=== PATIENT | female | born 1995 | race Caucasian/White ===

== ENCOUNTER 2017-06-05 23:20 | Emergency (ER) | payer SELFPAY ==
[~2017-06-05] VITALS: Ht 160 cm; Wt 61.4 kg
[2017-06-05 23:26] VITALS: BP 129/87; TEMP 98.6
[2017-06-05] MEDS ORDERED: YAZ 28 3 MG-0.01 TAB PO (23:30)
[2017-06-06 01:43] VITALS: PULSE 72
== END 2017-06-06 01:43 | disposition home or self-care (01) ==
LOC: COL.ER 23:20
DX: S61.411A Laceration without foreign body of right hand, initial encounter (principal); F41.9 Anxiety disorder, unspecified; W25.XXXA Contact with sharp glass, initial encounter; Y93.G1 Activity, food preparation and clean up; Y92.009 Unspecified place in unspecified non-institutional (private) residence as the place of occurrence of the external cause

== ENCOUNTER 2019-04-28 21:47 | Emergency (ER) | payer OTHER ==
[~2019-04-28] VITALS: Ht 160 cm; Wt 63.6 kg
[~2019-04-28 21:47] MED LIST: YAZ 28 3 MG-0.01 TAB PO
[2019-04-28 21:50] VITALS: TEMP 97.6
[2019-04-28 22:25] LABS: BASO % 0.4 % (0.0-2.0); EOS # 0.1 (0.0-0.7); EOS % 1.1 % (0-4.0); GRAN # 2.4 (1.4-6.5); GRAN % 43.4 % (42.2-75.2); HEMATOCRIT 40.4 % (37.0-47.0); LYMPH # 2.6 (1.2-3.4); LYMPH % 46.5 % (20.0-51.0); MEAN CELL VOLUME 83 fl (80.0-100.0); MEAN CORPUSCULAR HEMOGLOBIN 29 pg (27.0-31.0); MEAN CORPUSCULAR HGB CONC 35 g/dl (33.0-37.0); MEAN PLATELET VOLUME 8.9 fl (7.4-10.4); MONO # 0.5 (0.1-0.6); MONO % 8.2 % (1.7-9.3); PLATELET COUNT 229 K/mm3 (130-400); RED BLOOD COUNT 4.86 M/mm3 (4.10-5.30); REDCELL DISTRIBUTION WIDTH-CV 11.9 % (11.5-14.5)
[2019-04-28 22:41] LABS: ANION GAP 12 mmol/L (7-16); BLOOD UREA NITROGEN 12 mg/dL (7-17); CALCIUM 9.3 mg/dL (8.4-10.2); CARBON DIOXIDE 22 mmol/L (22-30); CHLORIDE 102 mmol/L (98-107); CREATININE, serum 0.61 (0.52-1.25); GLUCOSE 99 mg/dL (74-106); POTASSIUM 3.7 mmol/L (3.4-5.0); SODIUM 136 mmol/L (137-145)
[2019-04-28 22:52] LABS: TROPONIN-I < 0.012 ng/mL (0.000-0.035)
[2019-04-28] MEDS ORDERED: LEXAPRO5 MG/5 ML PO (22:57)
[2019-04-28 23:04] LABS: COLLECTION METHOD CLEAN CATCH
[2019-04-28 23:10] LABS: MUCOUS Present /lpf; PH 5 (5-8); URINE APPEARANCE Clear; URINE BACTERIA Rare /hpf; URINE BILIRUBIN Negative (NEGATIVE); URINE BLOOD Negative (NEGATIVE); URINE COLOR Yellow; URINE GLUCOSE Negative (NEGATIVE); URINE KETONE Negative (NEGATIVE); URINE LEUKOCYTE ESTERASE Negative (NEGATIVE); URINE NITRATE Negative (NEGATIVE); URINE PROTEIN(semi-quant) Negative (NEGATIVE); URINE RBC 0-2 /hpf; URINE UROBILINOGEN Negative (NEGATIVE)
[2019-04-28 23:37] VITALS: BP 123/83; PULSE 100
== END 2019-04-28 23:39 | disposition home or self-care (01) ==
LOC: COL.ER 21:47
PROVIDERS: Physician Assistant
DX: R07.89 Other chest pain (principal)